=== PATIENT | male | born 1950 | race Caucasian/White ===

== ENCOUNTER 2020-08-29 09:10 | Inpatient (IN) | payer BC, SELFPAY ==
[~2020-08-29] VITALS: Ht 154.9 cm; Wt 73.0 kg
[2020-08-29 09:21] VITALS: BP_SYST 156
[2020-08-29 10:57] LABS: BASOPHILS % (AUTO) 0.4 % (0.0-2.0); HEMOGLOBIN 16.3 g/dL (14.0-18.0); LYMPHOCYTES # (AUTO) 1.7 K/uL (1.0-5.5); MEAN CORPUSCULAR HEMOGLOBIN 30 pg (27-31); MEAN CORPUSCULAR HGB CONC 33 % (32-36); MEAN CORPUSCULAR VOLUME 89 fL (79.0-98.0); MONOCYTES # (AUTO) 0.6 K/uL (0.0-1.0); MONOCYTES % (AUTO) 5.9 % (1.7-9.3); NEUTROPHILS % (AUTO) 77.7 % (40.0-70.0); PLATELET COUNT (AUTO) 201 K/uL (130-430); RED BLOOD CELL COUNT(AUTO) 5.53 MIL/uL (4.2-6.2); RED CELL DISTRIBUTION WIDTH 14.5 % (9.0-15.0); WHITE BLOOD COUNT (AUTO) 10.4 K/uL (4.8-10.8)
[2020-08-29] MEDS ORDERED: cefTRIAXone 1 GM in D5W 50 ML IV ONE (11:15)
[2020-08-29] MEDS ORDERED: AZITHROMYCIN 500 MG in NS 250 ML IV ONE (11:15)
[2020-08-29] MEDS ORDERED: DEXAMETHASONE SOD PHOSPHATE 10 MG/ML VIAL IVP ONE (11:15)
[2020-08-29 11:26] LABS: CALCIUM 8.4 mg/dL (8.4-11.0); CREATININE 1.14 mg/dL (0.55-1.30)
[2020-08-29 11:27] LABS: INR 1.1 (0.80-1.20); PROTHROMBIN TIME 11.1 SECS (9.5-12.5)
[2020-08-29 11:32] LABS: ALBUMIN 2.7 g/dL (3.4-4.8); TOTAL BILIRUBIN 1.1 mg/dL (0.0-1.0)
[2020-08-29 11:37] LABS: POTASSIUM 5.2 mmol/L (3.5-5.1)
[2020-08-29 11:38] LABS: BILIRUBIN,URINE NEGATIVE (NEGATIVE); BLOOD, URINE 2+ (NEGATIVE); CLARITY/URINE CLEAR (CLEAR); COLOR,URINE YELLOW (YELLOW); GLUCOSE,URINE NEGATIVE (NEGATIVE); KETONES,URINE TRACE (NEGATIVE); LEUKOCYTE ESTERASE ,URINE NEGATIVE (NEGATIVE); NITRITE, URINE NEGATIVE (NEGATIVE); PH,URINE 5.5 (5.0-8.0); PROTEIN URINE 2+ (NEGATIVE)
[2020-08-29] MEDS ORDERED: AZITHROMYCIN 500 MG/VIAL (ZITHROMAX) IV ONE (11:38)
[2020-08-29] MEDS ORDERED: cefTRIAXone 1 GM VIAL ONE (11:38)
[2020-08-29 11:54] LABS: BACTERIA,URINE MODERATE /HPF (None Seen); MUCUS,URINE 1+ /LPF (None Seen); WBC,URINE 0-3 /HPF (0-3)
[2020-08-29 12:00] LABS: CKMB RELATIVE INDEX 0.1 (0.0-2.9); CREATINE KINASE MB 0.6 ng/mL (0-3.6)
[2020-08-29 12:13] LABS: C-REACTIVE PROTEIN QUANT 25.6 mg/dL (0-0.5)
[2020-08-29] MEDS ORDERED: KCL 20 mEq in NS 1000 mL 1,000 ML IV ONE (14:15)
[2020-08-29] MEDS ORDERED: ALBUTEROL MDI INHALATION 8 GM INH INH PRN (17:30)
[2020-08-29] MEDS ORDERED: ACETAMINOPHEN 325 MG TABLET PO PRN (17:30)
[2020-08-29] MEDS ORDERED: cefTRIAXone 1 GM in D5W 50 ML IV SCH (18:00)
[2020-08-29] MEDS: DEXAMETHASONE SOD PHOSPHATE 10 MG/ML VIAL IVP SCH (18:00)
[2020-08-29] MEDS: D5/0.45 NS 1,000 ML IV SCH (18:59)
[2020-08-29] MEDS: ENOXAPARIN SODIUM 40 MG/0.4 ML SYRINGE SUBCUT SCH (21:07)
[2020-08-29] MEDS: ASCORBIC ACID 500 MG TABLET PO SCH (21:07)
[2020-08-29] MEDS: DOXYCYCLINE HYCLATE 100 MG CAPSULE PO SCH (21:07)
[2020-08-29 22:55] VITALS: BP_SYST 154
[2020-08-30] VITALS: BP_SYST 150
[2020-08-30] MEDS: D5/0.45 NS 1,000 ML IV SCH ×2 (06:28→17:34)
[2020-08-30 07:36] LABS: BASOPHILS % (AUTO) 0.1 % (0.0-2.0); HEMATOCRIT 46.9 % (36-54); HEMOGLOBIN 15.8 g/dL (14.0-18.0); LYMPHOCYTES # (AUTO) 1.6 K/uL (1.0-5.5); LYMPHOCYTES % (AUTO) 17.7 % (20.5-51.5); MEAN CORPUSCULAR HEMOGLOBIN 30 pg (27-31); MEAN CORPUSCULAR HGB CONC 34 % (32-36); MEAN CORPUSCULAR VOLUME 88 fL (79.0-98.0); MONOCYTES # (AUTO) 0.6 K/uL (0.0-1.0); NEUTROPHILS # (AUTO) 7.1 K/uL (1.8-7.7); NEUTROPHILS % (AUTO) 76.2 % (40.0-70.0); PLATELET COUNT (AUTO) 236 K/uL (130-430); RED BLOOD CELL COUNT(AUTO) 5.33 MIL/uL (4.2-6.2); RED CELL DISTRIBUTION WIDTH 14.6 % (9.0-15.0); WHITE BLOOD COUNT (AUTO) 9.3 K/uL (4.8-10.8)
[2020-08-30 07:58] LABS: CALCIUM 8.3 mg/dL (8.4-11.0); CREATININE 0.99 mg/dL (0.55-1.30); POTASSIUM 3.6 mmol/L (3.5-5.1)
[2020-08-30 08:00] VITALS: BP_SYST 160
[2020-08-30] MEDS: DOXYCYCLINE HYCLATE 100 MG CAPSULE PO SCH ×2 (08:52→21:00)
[2020-08-30] MEDS: CHOLECALCIFEROL (VITAMIN D3) 5,000 UNIT TABLET PO SCH (08:53)
[2020-08-30] MEDS: ENOXAPARIN SODIUM 40 MG/0.4 ML SYRINGE SUBCUT SCH ×2 (08:53→21:00)
[2020-08-30] MEDS: ASCORBIC ACID 500 MG TABLET PO SCH ×2 (08:53→21:00)
[2020-08-30 11:47] LABS: C-REACTIVE PROTEIN QUANT 26.3 mg/dL (0-0.5)
[2020-08-30 12:00] VITALS: BP_SYST 149
[2020-08-30 12:40] VITALS: BP_SYST 149
[2020-08-30 16:00] VITALS: BP_SYST 145
[2020-08-30] MEDS: KCL 20 mEq in D5/0.45NS 1000mL 1,000 ML IV SCH (17:34)
[2020-08-30] MEDS: DEXAMETHASONE SOD PHOSPHATE 10 MG/ML VIAL IVP SCH (17:34)
[2020-08-30 20:00] VITALS: BP_SYST 159
[2020-08-30] MEDS: CEFEPIME 1 GM in D5W 50 ML IV SCH (21:00)
[2020-08-31] VITALS: BP_SYST 142
[2020-08-31] MEDS: KCL 20 mEq in D5/0.45NS 1000mL 1,000 ML IV SCH ×2 (05:05→17:54)
[2020-08-31 08:00] VITALS: BP_SYST 149
[2020-08-31 08:45] LABS: BASOPHILS % (AUTO) 0.1 % (0.0-2.0); HEMATOCRIT 42.7 % (36-54); HEMOGLOBIN 14.5 g/dL (14.0-18.0); LYMPHOCYTES # (AUTO) 1.1 K/uL (1.0-5.5); LYMPHOCYTES % (AUTO) 11.2 % (20.5-51.5); MEAN CORPUSCULAR HEMOGLOBIN 30 pg (27-31); MEAN CORPUSCULAR HGB CONC 34 % (32-36); MEAN CORPUSCULAR VOLUME 87 fL (79.0-98.0); MONOCYTES # (AUTO) 0.7 K/uL (0.0-1.0); MONOCYTES % (AUTO) 6.7 % (1.7-9.3); NEUTROPHILS # (AUTO) 8.2 K/uL (1.8-7.7); PLATELET COUNT (AUTO) 271 K/uL (130-430); RED BLOOD CELL COUNT(AUTO) 4.89 MIL/uL (4.2-6.2); RED CELL DISTRIBUTION WIDTH 14.3 % (9.0-15.0); WHITE BLOOD COUNT (AUTO) 9.9 K/uL (4.8-10.8)
[2020-08-31] MEDS: ASCORBIC ACID 500 MG TABLET PO SCH ×2 (09:14→20:00)
[2020-08-31] MEDS: DOXYCYCLINE HYCLATE 100 MG CAPSULE PO SCH ×2 (09:14→20:00)
[2020-08-31] MEDS: CHOLECALCIFEROL (VITAMIN D3) 5,000 UNIT TABLET PO SCH (09:14)
[2020-08-31] MEDS: PANTOPRAZOLE SODIUM 40 MG/VIAL (PROTONIX) IVP SCH (09:16)
[2020-08-31] MEDS: CEFEPIME 1 GM in D5W 50 ML IV SCH ×2 (09:16→20:00)
[2020-08-31 09:20] LABS: PHOSPHORUS 2.6 mg/dL (2.7-4.5)
[2020-08-31] MEDS: ENOXAPARIN SODIUM 40 MG/0.4 ML SYRINGE SUBCUT SCH ×2 (09:30→20:00)
[2020-08-31] MEDS: D5/0.45 NS 1,000 ML IV SCH ×2 (09:30→22:50)
[2020-08-31 12:06] LABS: C-REACTIVE PROTEIN QUANT 6.8 mg/dL (0-0.5)
[2020-08-31 16:00] VITALS: BP_SYST 143
[2020-08-31] MEDS: DEXAMETHASONE SOD PHOSPHATE 10 MG/ML VIAL IVP SCH (17:53)
[2020-08-31 20:00] VITALS: BP_SYST 154
[2020-09-01] VITALS: BP_SYST 142
[2020-09-01] MEDS: KCL 20 mEq in D5/0.45NS 1000mL 1,000 ML IV SCH ×2 (06:31→16:05)
[2020-09-01 08:00] VITALS: BP_SYST 146
[2020-09-01] MEDS: CHOLECALCIFEROL (VITAMIN D3) 5,000 UNIT TABLET PO SCH (09:31)
[2020-09-01] MEDS: ASCORBIC ACID 500 MG TABLET PO SCH ×2 (09:31→20:40)
[2020-09-01] MEDS: DOXYCYCLINE HYCLATE 100 MG CAPSULE PO SCH ×2 (09:31→20:40)
[2020-09-01] MEDS: PANTOPRAZOLE SODIUM 40 MG/VIAL (PROTONIX) IVP SCH (09:31)
[2020-09-01] MEDS: CEFEPIME 1 GM in D5W 50 ML IV SCH ×2 (09:31→20:40)
[2020-09-01] MEDS: ENOXAPARIN SODIUM 40 MG/0.4 ML SYRINGE SUBCUT SCH ×2 (09:31→20:40)
[2020-09-01 12:00] VITALS: BP_SYST 153
[2020-09-01] MEDS: D5/0.45 NS 1,000 ML IV SCH (12:10)
[2020-09-01 16:00] VITALS: BP_SYST 162
[2020-09-01] MEDS: DEXAMETHASONE SOD PHOSPHATE 10 MG/ML VIAL IVP SCH (18:22)
[2020-09-01 20:00] VITALS: BP_SYST 158
[2020-09-02] VITALS: BP_SYST 140
[2020-09-02] MEDS: DOXYCYCLINE HYCLATE 100 MG CAPSULE PO SCH ×2 (09:00→22:15)
[2020-09-02] MEDS: PANTOPRAZOLE SODIUM 40 MG/VIAL (PROTONIX) IVP SCH (09:00)
[2020-09-02] MEDS: CEFEPIME 1 GM in D5W 50 ML IV SCH ×2 (09:00→22:15)
[2020-09-02] MEDS: CHOLECALCIFEROL (VITAMIN D3) 5,000 UNIT TABLET PO SCH (09:00)
[2020-09-02] MEDS: ASCORBIC ACID 500 MG TABLET PO SCH ×2 (09:00→22:15)
[2020-09-02] MEDS: ENOXAPARIN SODIUM 40 MG/0.4 ML SYRINGE SUBCUT SCH ×2 (09:00→22:15)
[2020-09-02 09:38] LABS: BASOPHILS % (AUTO) 0.1 % (0.0-2.0); HEMATOCRIT 47.7 % (36-54); HEMOGLOBIN 15.8 g/dL (14.0-18.0); LYMPHOCYTES # (AUTO) 1.8 K/uL (1.0-5.5); LYMPHOCYTES % (AUTO) 16.5 % (20.5-51.5); MEAN CORPUSCULAR HEMOGLOBIN 29 pg (27-31); MEAN CORPUSCULAR HGB CONC 33 % (32-36); MEAN CORPUSCULAR VOLUME 89 fL (79.0-98.0); MONOCYTES # (AUTO) 0.9 K/uL (0.0-1.0); MONOCYTES % (AUTO) 8.2 % (1.7-9.3); NEUTROPHILS # (AUTO) 8.2 K/uL (1.8-7.7); NEUTROPHILS % (AUTO) 75.2 % (40.0-70.0); PLATELET COUNT (AUTO) 350 K/uL (130-430); RED BLOOD CELL COUNT(AUTO) 5.39 MIL/uL (4.2-6.2); RED CELL DISTRIBUTION WIDTH 14.2 % (9.0-15.0); WHITE BLOOD COUNT (AUTO) 10.9 K/uL (4.8-10.8)
[2020-09-02 12:15] VITALS: BP_SYST 149
[2020-09-02] MEDS: KCL 20 mEq in D5/0.45NS 1000mL 1,000 ML IV SCH (12:19)
[2020-09-02 14:54] VITALS: BP_SYST 140
[2020-09-02 16:19] VITALS: BP_SYST 152
[2020-09-02] MEDS: DEXAMETHASONE SOD PHOSPHATE 10 MG/ML VIAL IVP SCH (18:15)
[2020-09-02 20:00] VITALS: BP_SYST 166
[2020-09-03] VITALS: BP_SYST 160
[2020-09-03] MEDS: KCL 20 mEq in D5/0.45NS 1000mL 1,000 ML IV SCH (06:00)
[2020-09-03 08:00] VITALS: BP_SYST 152
[2020-09-03] MEDS: CEFEPIME 1 GM in D5W 50 ML IV SCH ×2 (09:00→21:00)
[2020-09-03] MEDS: DOXYCYCLINE HYCLATE 100 MG CAPSULE PO SCH ×2 (09:00→21:00)
[2020-09-03] MEDS: ASCORBIC ACID 500 MG TABLET PO SCH ×2 (09:00→21:00)
[2020-09-03] MEDS: PANTOPRAZOLE SODIUM 40 MG/VIAL (PROTONIX) IVP SCH (09:00)
[2020-09-03] MEDS: ENOXAPARIN SODIUM 40 MG/0.4 ML SYRINGE SUBCUT SCH ×2 (09:00→21:00)
[2020-09-03] MEDS: CHOLECALCIFEROL (VITAMIN D3) 5,000 UNIT TABLET PO SCH (09:00)
[2020-09-03 12:00] VITALS: BP_SYST 155
[2020-09-03 16:00] VITALS: BP_SYST 153
[2020-09-03] MEDS: DEXAMETHASONE SOD PHOSPHATE 10 MG/ML VIAL IVP SCH (18:00)
[2020-09-03 20:00] VITALS: BP_SYST 128
[2020-09-03] MEDS ORDERED: LOSARTAN POTASSIUM 50 MG TABLET (COZAAR) PO ONE (20:00)
[2020-09-04 00:12] VITALS: BP_SYST 153
[2020-09-04] MEDS: KCL 20 mEq in D5/0.45NS 1000mL 1,000 ML IV SCH ×2 (02:00→22:10)
[2020-09-04 08:00] VITALS: BP_SYST 147
[2020-09-04] MEDS: LOSARTAN POTASSIUM 50 MG TABLET (COZAAR) PO SCH (09:00)
[2020-09-04] MEDS: CHOLECALCIFEROL (VITAMIN D3) 5,000 UNIT TABLET PO SCH (09:24)
[2020-09-04] MEDS: ASCORBIC ACID 500 MG TABLET PO SCH ×2 (09:24→22:08)
[2020-09-04] MEDS: DOXYCYCLINE HYCLATE 100 MG CAPSULE PO SCH ×2 (09:24→22:08)
[2020-09-04] MEDS: CEFEPIME 1 GM in D5W 50 ML IV SCH ×2 (09:24→22:08)
[2020-09-04] MEDS: PANTOPRAZOLE SODIUM 40 MG/VIAL (PROTONIX) IVP SCH (09:24)
[2020-09-04] MEDS: ENOXAPARIN SODIUM 40 MG/0.4 ML SYRINGE SUBCUT SCH ×2 (09:26→22:09)
[2020-09-04 12:00] VITALS: BP_SYST 141
[2020-09-04 16:00] VITALS: BP_SYST 144
[2020-09-04] MEDS: DEXAMETHASONE SOD PHOSPHATE 10 MG/ML VIAL IVP SCH (18:35)
[2020-09-04 22:07] VITALS: BP_SYST 151
[2020-09-05 00:12] VITALS: BP_SYST 138
[2020-09-05] MEDS: KCL 20 mEq in D5/0.45NS 1000mL 1,000 ML IV SCH ×2 (05:55→18:54)
[2020-09-05] MEDS: CHOLECALCIFEROL (VITAMIN D3) 5,000 UNIT TABLET PO SCH (08:56)
[2020-09-05] MEDS: ASCORBIC ACID 500 MG TABLET PO SCH ×2 (08:56→21:51)
[2020-09-05] MEDS: CEFEPIME 1 GM in D5W 50 ML IV SCH ×2 (08:56→21:53)
[2020-09-05] MEDS: DOXYCYCLINE HYCLATE 100 MG CAPSULE PO SCH ×2 (08:56→21:51)
[2020-09-05] MEDS: PANTOPRAZOLE SODIUM 40 MG/VIAL (PROTONIX) IVP SCH (08:56)
[2020-09-05 09:10] LABS: BASOPHILS # (AUTO) 0.1 K/uL (0.0-0.2); BASOPHILS % (AUTO) 0.6 % (0.0-2.0); EOSINOPHILS % (AUTO) 0.1 % (0.0-4.0); HEMATOCRIT 52.3 % (36-54); HEMOGLOBIN 17.6 g/dL (14.0-18.0); LYMPHOCYTES # (AUTO) 2.3 K/uL (1.0-5.5); MEAN CORPUSCULAR HEMOGLOBIN 30 pg (27-31); MEAN CORPUSCULAR HGB CONC 34 % (32-36); MEAN CORPUSCULAR VOLUME 88 fL (79.0-98.0); MONOCYTES # (AUTO) 0.8 K/uL (0.0-1.0); MONOCYTES % (AUTO) 7.5 % (1.7-9.3); NEUTROPHILS # (AUTO) 7.3 K/uL (1.8-7.7); NEUTROPHILS % (AUTO) 69.8 % (40.0-70.0); PLATELET COUNT (AUTO) 529 K/uL (130-430); RED BLOOD CELL COUNT(AUTO) 5.92 MIL/uL (4.2-6.2); RED CELL DISTRIBUTION WIDTH 14.6 % (9.0-15.0); WHITE BLOOD COUNT (AUTO) 10.5 K/uL (4.8-10.8)
[2020-09-05] MEDS: ENOXAPARIN SODIUM 40 MG/0.4 ML SYRINGE SUBCUT SCH ×2 (09:26→21:53)
[2020-09-05] MEDS: LOSARTAN POTASSIUM 50 MG TABLET (COZAAR) PO SCH (09:29)
[2020-09-05 09:39] VITALS: BP_SYST 150
[2020-09-05 10:20] LABS: CALCIUM 8.7 mg/dL (8.4-11.0); CREATININE 0.82 mg/dL (0.55-1.30); POTASSIUM 4.8 mmol/L (3.5-5.1)
[2020-09-05 13:31] VITALS: BP_SYST 139
[2020-09-05 16:25] VITALS: BP_SYST 132
[2020-09-05] MEDS: DEXAMETHASONE SOD PHOSPHATE 10 MG/ML VIAL IVP SCH (18:16)
[2020-09-05 20:30] VITALS: BP_SYST 139
[2020-09-06 00:02] VITALS: BP_SYST 122
[2020-09-06] MEDS: KCL 20 mEq in D5/0.45NS 1000mL 1,000 ML IV SCH ×2 (06:09→18:00)
[2020-09-06 08:00] VITALS: BP_SYST 159
[2020-09-06] MEDS: LOSARTAN POTASSIUM 50 MG TABLET (COZAAR) PO SCH (10:14)
[2020-09-06] MEDS: CEFEPIME 1 GM in D5W 50 ML IV SCH ×2 (10:14→21:00)
[2020-09-06] MEDS: PANTOPRAZOLE SODIUM 40 MG/VIAL (PROTONIX) IVP SCH (10:14)
[2020-09-06] MEDS: DOXYCYCLINE HYCLATE 100 MG CAPSULE PO SCH ×2 (10:15→21:00)
[2020-09-06] MEDS: CHOLECALCIFEROL (VITAMIN D3) 5,000 UNIT TABLET PO SCH (10:15)
[2020-09-06] MEDS: ENOXAPARIN SODIUM 40 MG/0.4 ML SYRINGE SUBCUT SCH ×2 (10:15→21:00)
[2020-09-06] MEDS: ASCORBIC ACID 500 MG TABLET PO SCH ×2 (10:15→21:00)
[2020-09-06 11:03] VITALS: BP_SYST 136
[2020-09-06 15:00] LABS: FREE T4 (FREE THYROXINE) 1.7 ng/dl (0.8-1.5); THYROID STIMULATING HORMONE 2.09 uIu/mL (0.36-3.74)
[2020-09-06 15:33] VITALS: BP_SYST 146
[2020-09-06] MEDS: DEXAMETHASONE SOD PHOSPHATE 10 MG/ML VIAL IVP SCH (19:12)
[2020-09-06 19:50] VITALS: BP_SYST 116
[2020-09-07] VITALS: BP_SYST 124
[2020-09-07 08:00] VITALS: BP_SYST 141
[2020-09-07] MEDS: CHOLECALCIFEROL (VITAMIN D3) 5,000 UNIT TABLET PO SCH (09:48)
[2020-09-07] MEDS: CEFEPIME 1 GM in D5W 50 ML IV SCH (09:48)
[2020-09-07] MEDS: ASCORBIC ACID 500 MG TABLET PO SCH ×2 (09:48→21:00)
[2020-09-07] MEDS: PANTOPRAZOLE SODIUM 40 MG/VIAL (PROTONIX) IVP SCH (09:48)
[2020-09-07] MEDS: DOXYCYCLINE HYCLATE 100 MG CAPSULE PO SCH ×2 (09:48→21:00)
[2020-09-07] MEDS: LOSARTAN POTASSIUM 50 MG TABLET (COZAAR) PO SCH (09:48)
[2020-09-07] MEDS: ENOXAPARIN SODIUM 40 MG/0.4 ML SYRINGE SUBCUT SCH ×2 (09:49→21:00)
[2020-09-07 10:10] LABS: BASOPHILS # (AUTO) 0.2 K/uL (0.0-0.2); BASOPHILS % (AUTO) 1.5 % (0.0-2.0); EOSINOPHILS % (AUTO) 0.5 % (0.0-4.0); HEMATOCRIT 51.8 % (36-54); HEMOGLOBIN 17.2 g/dL (14.0-18.0); LYMPHOCYTES # (AUTO) 2.1 K/uL (1.0-5.5); LYMPHOCYTES % (AUTO) 20.6 % (20.5-51.5); MEAN CORPUSCULAR HEMOGLOBIN 29 pg (27-31); MEAN CORPUSCULAR HGB CONC 33 % (32-36); MEAN CORPUSCULAR VOLUME 88 fL (79.0-98.0); MONOCYTES # (AUTO) 0.4 K/uL (0.0-1.0); MONOCYTES % (AUTO) 4.1 % (1.7-9.3); NEUTROPHILS # (AUTO) 7.6 K/uL (1.8-7.7); NEUTROPHILS % (AUTO) 73.3 % (40.0-70.0); PLATELET COUNT (AUTO) 522 K/uL (130-430); RED BLOOD CELL COUNT(AUTO) 5.86 MIL/uL (4.2-6.2); RED CELL DISTRIBUTION WIDTH 14.4 % (9.0-15.0); WHITE BLOOD COUNT (AUTO) 10.4 K/uL (4.8-10.8)
[2020-09-07 10:27] LABS: ALBUMIN 2.3 g/dL (3.4-4.8); CALCIUM 8.4 mg/dL (8.4-11.0); CREATININE 0.83 mg/dL (0.55-1.30); POTASSIUM 4.6 mmol/L (3.5-5.1); TOTAL BILIRUBIN 0.5 mg/dL (0.0-1.0)
[2020-09-07 12:00] VITALS: BP_SYST 136
[2020-09-07] MEDS: KCL 20 mEq in D5/0.45NS 1000mL 1,000 ML IV SCH ×2 (12:00→23:40)
[2020-09-07 16:00] VITALS: BP_SYST 150
[2020-09-07] MEDS: DEXAMETHASONE SOD PHOSPHATE 10 MG/ML VIAL IVP SCH (18:29)
[2020-09-07 19:55] VITALS: BP_SYST 138
[2020-09-08] VITALS: BP_SYST 132
[2020-09-08 08:03] LABS: BASOPHILS % (AUTO) 0.1 % (0.0-2.0); HEMATOCRIT 45.8 % (36-54); HEMOGLOBIN 15.5 g/dL (14.0-18.0); LYMPHOCYTES # (AUTO) 1.9 K/uL (1.0-5.5); LYMPHOCYTES % (AUTO) 21.9 % (20.5-51.5); MEAN CORPUSCULAR HEMOGLOBIN 30 pg (27-31); MEAN CORPUSCULAR HGB CONC 34 % (32-36); MEAN CORPUSCULAR VOLUME 88 fL (79.0-98.0); MONOCYTES # (AUTO) 0.4 K/uL (0.0-1.0); MONOCYTES % (AUTO) 5.1 % (1.7-9.3); NEUTROPHILS # (AUTO) 6.2 K/uL (1.8-7.7); NEUTROPHILS % (AUTO) 72.9 % (40.0-70.0); PLATELET COUNT (AUTO) 537 K/uL (130-430); RED BLOOD CELL COUNT(AUTO) 5.21 MIL/uL (4.2-6.2); RED CELL DISTRIBUTION WIDTH 13.9 % (9.0-15.0); WHITE BLOOD COUNT (AUTO) 8.6 K/uL (4.8-10.8)
[2020-09-08 08:17] LABS: ALBUMIN 2.2 g/dL (3.4-4.8); CALCIUM 8.1 mg/dL (8.4-11.0); CREATININE 0.68 mg/dL (0.55-1.30); POTASSIUM 4.4 mmol/L (3.5-5.1); TOTAL BILIRUBIN 0.4 mg/dL (0.0-1.0)
[2020-09-08 08:25] VITALS: BP_SYST 155
[2020-09-08] MEDS: PANTOPRAZOLE SODIUM 40 MG/VIAL (PROTONIX) IVP SCH (09:47)
[2020-09-08] MEDS: LOSARTAN POTASSIUM 50 MG TABLET (COZAAR) PO SCH (09:48)
[2020-09-08] MEDS: DOXYCYCLINE HYCLATE 100 MG CAPSULE PO SCH ×2 (09:48→21:00)
[2020-09-08] MEDS: ASCORBIC ACID 500 MG TABLET PO SCH ×2 (09:48→21:00)
[2020-09-08] MEDS: CHOLECALCIFEROL (VITAMIN D3) 5,000 UNIT TABLET PO SCH (09:49)
[2020-09-08] MEDS: ENOXAPARIN SODIUM 40 MG/0.4 ML SYRINGE SUBCUT SCH (09:50)
[2020-09-08 14:48] VITALS: BP_SYST 155
[2020-09-08 16:20] VITALS: BP_SYST 135
[2020-09-08 20:00] VITALS: BP_SYST 147
[2020-09-08] MEDS: APIXABAN 2.5 MG TABLET PO SCH (21:00)
[2020-09-08] MEDS: KCL 20 mEq in D5/0.45NS 1000mL 1,000 ML IV SCH (23:00)
[2020-09-09] VITALS: BP_SYST 147
[2020-09-09 07:55] VITALS: BP_SYST 115
[2020-09-09] MEDS: PANTOPRAZOLE SODIUM 40 MG/VIAL (PROTONIX) IVP SCH (10:11)
[2020-09-09] MEDS: LOSARTAN POTASSIUM 50 MG TABLET (COZAAR) PO SCH (10:12)
[2020-09-09] MEDS: CHOLECALCIFEROL (VITAMIN D3) 5,000 UNIT TABLET PO SCH (10:12)
[2020-09-09] MEDS: DOXYCYCLINE HYCLATE 100 MG CAPSULE PO SCH ×2 (10:12→21:00)
[2020-09-09] MEDS: ASCORBIC ACID 500 MG TABLET PO SCH ×2 (10:12→21:00)
[2020-09-09] MEDS: DECADRON 4 MG TABLET PO SCH (10:13)
[2020-09-09] MEDS: APIXABAN 2.5 MG TABLET PO SCH ×2 (10:15→21:00)
[2020-09-09 12:00] VITALS: BP_SYST 126
[2020-09-09 16:00] VITALS: BP_SYST 128
[2020-09-09] MEDS: KCL 20 mEq in D5/0.45NS 1000mL 1,000 ML IV SCH (16:06)
[2020-09-09 20:00] VITALS: BP_SYST 117
[2020-09-10] VITALS: BP_SYST 147
[2020-09-10] MEDS: KCL 20 mEq in D5/0.45NS 1000mL 1,000 ML IV SCH ×2 (05:45→22:03)
[2020-09-10 08:05] VITALS: BP_SYST 139
[2020-09-10] MEDS: APIXABAN 2.5 MG TABLET PO SCH ×2 (10:14→22:03)
[2020-09-10] MEDS: CHOLECALCIFEROL (VITAMIN D3) 5,000 UNIT TABLET PO SCH (10:22)
[2020-09-10] MEDS: DOXYCYCLINE HYCLATE 100 MG CAPSULE PO SCH ×2 (10:23→22:03)
[2020-09-10] MEDS: DECADRON 4 MG TABLET PO SCH (10:23)
[2020-09-10] MEDS: ASCORBIC ACID 500 MG TABLET PO SCH ×2 (10:23→22:03)
[2020-09-10] MEDS: LOSARTAN POTASSIUM 50 MG TABLET (COZAAR) PO SCH (10:26)
[2020-09-10] MEDS: PANTOPRAZOLE SODIUM 40 MG/VIAL (PROTONIX) IVP SCH (10:26)
[2020-09-10 11:30] VITALS: BP_SYST 134
[2020-09-10 15:19] VITALS: BP_SYST 145
[2020-09-10 22:03] VITALS: BP_SYST 129
[2020-09-11 01:19] VITALS: BP_SYST 155
[2020-09-11 08:00] VITALS: BP_SYST 133
[2020-09-11] MEDS: PANTOPRAZOLE SODIUM 40 MG/VIAL (PROTONIX) IVP SCH (08:36)
[2020-09-11] MEDS: LOSARTAN POTASSIUM 50 MG TABLET (COZAAR) PO SCH (08:36)
[2020-09-11] MEDS: KCL 20 mEq in D5/0.45NS 1000mL 1,000 ML IV SCH ×2 (08:36→20:51)
[2020-09-11] MEDS: DECADRON 4 MG TABLET PO SCH (08:36)
[2020-09-11] MEDS: DOXYCYCLINE HYCLATE 100 MG CAPSULE PO SCH ×2 (08:37→20:51)
[2020-09-11] MEDS: ASCORBIC ACID 500 MG TABLET PO SCH ×2 (08:37→20:51)
[2020-09-11] MEDS: CHOLECALCIFEROL (VITAMIN D3) 5,000 UNIT TABLET PO SCH (08:37)
[2020-09-11] MEDS: APIXABAN 2.5 MG TABLET PO SCH ×2 (09:00→20:51)
[2020-09-11 12:09] VITALS: BP_SYST 144
[2020-09-11 16:09] VITALS: BP_SYST 138
[2020-09-11 20:00] VITALS: BP_SYST 144
[2020-09-11 22:20] VITALS: BP_SYST 138
[2020-09-12 01:16] VITALS: BP_SYST 137
[2020-09-12 08:00] VITALS: BP_SYST 136
[2020-09-12] MEDS: LOSARTAN POTASSIUM 50 MG TABLET (COZAAR) PO SCH (09:16)
[2020-09-12] MEDS: PANTOPRAZOLE SODIUM 40 MG/VIAL (PROTONIX) IVP SCH (09:16)
[2020-09-12] MEDS: ASCORBIC ACID 500 MG TABLET PO SCH ×2 (09:17→20:53)
[2020-09-12] MEDS: DECADRON 4 MG TABLET PO SCH (09:17)
[2020-09-12] MEDS: DOXYCYCLINE HYCLATE 100 MG CAPSULE PO SCH ×2 (09:17→20:52)
[2020-09-12] MEDS: CHOLECALCIFEROL (VITAMIN D3) 5,000 UNIT TABLET PO SCH (09:18)
[2020-09-12] MEDS: APIXABAN 2.5 MG TABLET PO SCH ×2 (09:18→20:52)
[2020-09-12] MEDS: KCL 20 mEq in D5/0.45NS 1000mL 1,000 ML IV SCH (10:20)
[2020-09-12 16:09] VITALS: BP_SYST 141
[2020-09-12 20:00] VITALS: BP_SYST 134
[2020-09-13] VITALS: BP_SYST 143
[2020-09-13] MEDS: KCL 20 mEq in D5/0.45NS 1000mL 1,000 ML IV SCH ×2 (00:57→13:00)
[2020-09-13 08:00] VITALS: BP_SYST 142
[2020-09-13] MEDS: LOSARTAN POTASSIUM 50 MG TABLET (COZAAR) PO SCH (08:57)
[2020-09-13] MEDS: ASCORBIC ACID 500 MG TABLET PO SCH ×2 (08:57→22:07)
[2020-09-13] MEDS: DECADRON 4 MG TABLET PO SCH (08:57)
[2020-09-13] MEDS: CHOLECALCIFEROL (VITAMIN D3) 5,000 UNIT TABLET PO SCH (08:57)
[2020-09-13] MEDS: PANTOPRAZOLE SODIUM 40 MG/VIAL (PROTONIX) IVP SCH (08:57)
[2020-09-13] MEDS: APIXABAN 2.5 MG TABLET PO SCH ×2 (09:53→22:07)
[2020-09-13] MEDS: DOXYCYCLINE HYCLATE 100 MG CAPSULE PO SCH ×2 (09:53→21:00)
[2020-09-13 16:23] VITALS: BP_SYST 121
[2020-09-13 20:00] VITALS: BP_SYST 134
[2020-09-14] MEDS: KCL 20 mEq in D5/0.45NS 1000mL 1,000 ML IV SCH ×2 (02:20→22:11)
[2020-09-14 08:00] VITALS: BP_SYST 150
[2020-09-14] MEDS: PANTOPRAZOLE SODIUM 40 MG/VIAL (PROTONIX) IVP SCH (09:00)
[2020-09-14] MEDS: CHOLECALCIFEROL (VITAMIN D3) 5,000 UNIT TABLET PO SCH (10:40)
[2020-09-14] MEDS: ASCORBIC ACID 500 MG TABLET PO SCH ×2 (10:40→20:21)
[2020-09-14] MEDS: DOXYCYCLINE HYCLATE 100 MG CAPSULE PO SCH ×2 (10:40→21:00)
[2020-09-14] MEDS: APIXABAN 2.5 MG TABLET PO SCH ×2 (10:40→20:21)
[2020-09-14] MEDS: LOSARTAN POTASSIUM 50 MG TABLET (COZAAR) PO SCH (10:40)
[2020-09-14] MEDS: DECADRON 4 MG TABLET PO SCH (10:40)
[2020-09-14 12:00] VITALS: BP_SYST 162
[2020-09-15] VITALS: BP_SYST 124
[2020-09-15] MEDS: KCL 20 mEq in D5/0.45NS 1000mL 1,000 ML IV SCH ×2 (05:00→22:00)
[2020-09-15 08:00] VITALS: BP_SYST 151
[2020-09-15 08:08] LABS: CALCIUM 8.3 mg/dL (8.4-11.0); CREATININE 0.68 mg/dL (0.55-1.30); POTASSIUM 4.5 mmol/L (3.5-5.1)
[2020-09-15] MEDS: CHOLECALCIFEROL (VITAMIN D3) 5,000 UNIT TABLET PO SCH (08:16)
[2020-09-15] MEDS: ASCORBIC ACID 500 MG TABLET PO SCH ×2 (08:16→22:00)
[2020-09-15] MEDS: PANTOPRAZOLE SODIUM 40 MG/VIAL (PROTONIX) IVP SCH (08:16)
[2020-09-15] MEDS: DECADRON 4 MG TABLET PO SCH (08:16)
[2020-09-15] MEDS: DOXYCYCLINE HYCLATE 100 MG CAPSULE PO SCH (08:16)
[2020-09-15 08:44] LABS: BASOPHILS % (AUTO) 0.4 % (0.0-2.0); EOSINOPHILS % (AUTO) 0.2 % (0.0-4.0); HEMATOCRIT 49.2 % (36-54); HEMOGLOBIN 16.2 g/dL (14.0-18.0); LYMPHOCYTES # (AUTO) 2.4 K/uL (1.0-5.5); LYMPHOCYTES % (AUTO) 25.9 % (20.5-51.5); MEAN CORPUSCULAR HEMOGLOBIN 30 pg (27-31); MEAN CORPUSCULAR HGB CONC 33 % (32-36); MEAN CORPUSCULAR VOLUME 89 fL (79.0-98.0); MONOCYTES # (AUTO) 0.6 K/uL (0.0-1.0); MONOCYTES % (AUTO) 6.2 % (1.7-9.3); NEUTROPHILS # (AUTO) 6.2 K/uL (1.8-7.7); NEUTROPHILS % (AUTO) 67.3 % (40.0-70.0); PLATELET COUNT (AUTO) 256 K/uL (130-430); RED BLOOD CELL COUNT(AUTO) 5.51 MIL/uL (4.2-6.2); RED CELL DISTRIBUTION WIDTH 14.4 % (9.0-15.0); WHITE BLOOD COUNT (AUTO) 9.1 K/uL (4.8-10.8)
[2020-09-15] MEDS: LOSARTAN POTASSIUM 50 MG TABLET (COZAAR) PO SCH (09:56)
[2020-09-15 10:01] VITALS: BP_SYST 151
[2020-09-15] MEDS: APIXABAN 2.5 MG TABLET PO SCH ×2 (10:06→22:00)
[2020-09-15 12:14] VITALS: BP_SYST 133
[2020-09-15 16:15] VITALS: BP_SYST 110
[2020-09-15 22:10] VITALS: BP_SYST 132
[2020-09-16 01:08] VITALS: BP_SYST 129
[2020-09-16 08:00] VITALS: BP_SYST 144
[2020-09-16] MEDS: PANTOPRAZOLE SODIUM 40 MG/VIAL (PROTONIX) IVP SCH (09:02)
[2020-09-16] MEDS: CHOLECALCIFEROL (VITAMIN D3) 5,000 UNIT TABLET PO SCH (09:03)
[2020-09-16] MEDS: ASCORBIC ACID 500 MG TABLET PO SCH ×2 (09:03→21:00)
[2020-09-16] MEDS: APIXABAN 2.5 MG TABLET PO SCH ×2 (09:04→21:00)
[2020-09-16] MEDS: LOSARTAN POTASSIUM 50 MG TABLET (COZAAR) PO SCH (09:59)
[2020-09-16 11:47] VITALS: BP_SYST 130
[2020-09-16] MEDS: KCL 20 mEq in D5/0.45NS 1000mL 1,000 ML IV SCH ×2 (16:22→22:50)
[2020-09-16 16:24] VITALS: BP_SYST 137
[2020-09-16 20:00] VITALS: BP_SYST 134
[2020-09-17] VITALS: BP_SYST 120
[2020-09-17] MEDS: CHOLECALCIFEROL (VITAMIN D3) 5,000 UNIT TABLET PO SCH (09:49)
[2020-09-17] MEDS: ASCORBIC ACID 500 MG TABLET PO SCH (09:50)
[2020-09-17] MEDS: PANTOPRAZOLE SODIUM 40 MG/VIAL (PROTONIX) IVP SCH (09:50)
[2020-09-17] MEDS: APIXABAN 2.5 MG TABLET PO SCH (09:51)
[2020-09-17] MEDS: LOSARTAN POTASSIUM 50 MG TABLET (COZAAR) PO SCH (10:48)
[2020-09-17 12:41] VITALS: BP_SYST 149
[2020-09-17 12:50] VITALS: BP_SYST 124
[2020-09-17] MEDS ORDERED: DEC4 PO (13:17)
[2020-09-17] MEDS ORDERED: DOXY100T2 PO (13:17)
[2020-09-17] MEDS ORDERED: ZINC220T4 PO (13:18)
[2020-09-17] MEDS ORDERED: APIX2.5T PO (13:18)
[2020-09-17] MEDS ORDERED: LOSA50TA3 PO (13:19)
== END 2020-09-17 09:50 | disposition home health service (06) | DRG 177 ==
LOC: SED 11:00 → STU 14:05 → SMU 09-08 17:42
PROVIDERS: ADMIT Family Medicine; ATTEND Family Medicine
PROC: 5A09357 Assistance with Respiratory Ventilation, Less than 24 Consecutive Hours, Continuous Positive Airway Pressure (ICD-10-PCS; 2020-08-29)
PROC: XW13325 Transfusion of Convalescent Plasma (Nonautologous) into Peripheral Vein, Percutaneous Approach, New Technology Group 5 (ICD-10-PCS; principal; 2020-08-31)
DX: U07.1 COVID-19 (principal); G93.41 Metabolic encephalopathy; J12.82 Pneumonia due to coronavirus disease 2019; K81.0 Acute cholecystitis; R09.02 Hypoxemia; R74.01 Elevation of levels of liver transaminase levels
CPT/HCPCS: 36415; 36600; 71045; 76376; 76700-TC; 80048; 80053; 81000-TC; 82550-TC; 82553-TC; 82728; 82803-TC; 83605; 83615-TC; 83735-TC; 83880; 84100-TC; 84439; 84443-TC; 84484; 85025; 85379; 85384-TC; 85610-TC; 85730-TC; 86140; 86886; 86900; 86901; 87040-TC; 87086; 93005; 94760; 96365; 96375; 97110-GP; 97112-GP; 97116-GP; 97530-GP; 99291; C9113; G0378; J0456; J0692; J0696; J1100; J1650; J3480; J7040; J7060; J8540; P9017